=== PATIENT | female | born 1990 | race Caucasian/White ===

== ENCOUNTER 2017-01-16 00:12 | Emergency (ER) | payer OTHER ==
[2017-01-16 01:13] LABS: HEMOGLOBIN 12.2 gm/dl (12.3-15.3); RED BLOOD COUNT 4.15 M/UL (4.00-5.10); WHITE BLOOD COUNT 13.5 K/UL (4.5-11.0)
[2017-01-16 01:19] LABS: BUN/CREATININE RATIO 12 (0-10)
== END 2017-01-16 03:01 | disposition left against medical advice (07) ==
LOC: ER1 00:12
PROVIDERS: Family Medicine
DX: O26.891 Other specified pregnancy related conditions, first trimester (principal); R10.84 Generalized abdominal pain; O23.591 Infection of other part of genital tract in pregnancy, first trimester; O99.331 Smoking (tobacco) complicating pregnancy, first trimester; F17.210 Nicotine dependence, cigarettes, uncomplicated; Z3A.14 14 weeks gestation of pregnancy
CPT/HCPCS: 80053; 81001; 84702; 85025; 87086; 99284

== ENCOUNTER 2020-08-09 15:23 | Emergency (ER) | payer OTHER ==
[~2020-08-09 15:23] MED LIST: BUSPAR 10MG10 MG PO; COLACE 100MG C100 MG PO; INDERAL TAB 4040 MG PO; KEFLEX500 MG PO; LAMICTAL25 MG PO; NEURONTIN400 MG PO; PREDNISONE10 MG PO; SUBOXONE 8 MG-1 EACH PO; TYLENOL 500 MG500 MG PO; ZANAFLEX4 MG PO
[2020-08-09] MEDS ORDERED: CLEOCIN HCL300 MG PO (16:34)
[2020-08-09] MEDS ORDERED: IBUPROFEN600 MG PO (16:43)
== END 2020-08-09 16:58 | disposition home or self-care (01) ==
LOC: ER1 15:23
DX: K02.9 Dental caries, unspecified (principal); M06.9 Rheumatoid arthritis, unspecified; F17.210 Nicotine dependence, cigarettes, uncomplicated
CPT/HCPCS: 99282

== ENCOUNTER → 2021-09-27 | Outpatient (CLI) | payer OTHER ==
[~2021-09-27] MED LIST changes: +CLEOCIN HCL300 MG PO; +IBUPROFEN600 MG PO
== END ==
LOC: LAB 13:56
DX: R05.9 Cough, unspecified (principal); M54.50 Low back pain, unspecified; M54.6 Pain in thoracic spine; M54.2 Cervicalgia; Z53.8 Procedure and treatment not carried out for other reasons
CPT/HCPCS: 72050